=== PATIENT | male | born 1985 ===

== ENCOUNTER 2020-06-01 09:27 | Outpatient (CLI) | payer OTHER ==
--- NOTE | 2020-06-01 17:15 | Consultation ---
DATE OF CONSULTATION: 06/01/2020 CONSULTING PHYSICIAN: Edil Faye MD. CHIEF COMPLAINT: Referral for repeat colonoscopy. HISTORY OF PRESENT ILLNESS: The patient is a 35-year-old male, who had a colonoscopy in January 2019, which had a large rectal polyp. He had repeat colonoscopy in March. Recommendation was to have a surgery, which he had followup. Following, he had a surgical done by the surgeon. He was recommended to have a colonoscopy a year after the surgery, which is now. PAST MEDICAL HISTORY: Large rectal polyp. PAST SURGICAL HISTORY: Partial colectomy. MEDICATIONS: None. ALLERGIES: No known drug allergies. FAMILY HISTORY: None. SOCIAL HISTORY: The patient denies any tobacco, alcohol, or IV drug abuse. REVIEW OF SYSTEMS: Negative. PHYSICAL EXAMINATION: GENERAL: A well-developed male, in no acute distress HEENT: Normocephalic and atraumatic. Sclerae anicteric. NECK: Supple. No evidence of obvious lymphadenopathy. CARDIOVASCULAR: Regular rate and rhythm. Plus S1, S2. LUNGS: Clear to auscultation bilaterally. ABDOMEN: Positive bowel sounds. Soft and nontender. No rebound. No guarding. No peritoneal sign. EXTREMITIES: No cyanosis. No clubbing. No edema. ASSESSMENT AND PLAN: The patient is a 35-year-old male with history of large rectal polyp, status post resection. He is referred to us for repeat colonoscopy. The patient will be scheduled as soon as authorization is obtained. Edil Faye M.D. DR: Alida JOB#: [id number] CC:
== END 2020-06-01 11:27 | disposition home or self-care (01) ==
LOC: PAN 09:27
DX: K62.1 Rectal polyp (principal); Z87.19 Personal history of other diseases of the digestive system
CPT/HCPCS: G0463

== ENCOUNTER 2020-08-05 13:59 | Outpatient (CLI) | payer OTHER ==
--- NOTE | 2020-08-05 16:27 | General Progress Note ---
Subjective ROS Limited/Unobtainable: Yes Allergies: Coded Allergies: No Known Allergies (Unverified , 06/01/20) Objective General Appearance: alert EENT: normal ENT inspection Neck: supple Cardiovascular: normal rate Respiratory/Chest: decreased breath sounds Abdomen: normal bowel sounds, non tender, soft Extremities: non-tender Assessment/Plan Assessment/Plan: colon polyp x2 h/o surg for large rectal polyp recommend repeat colon in 5 years Edil Faye MD Aug 05, 2020 16:27
== END 2020-08-05 15:17 | disposition home or self-care (01) ==
LOC: PAN 13:59
DX: K63.5 Polyp of colon (principal)
CPT/HCPCS: 99212